=== PATIENT | female | born 1975 | race Asian ===

== ENCOUNTER 2021-02-25 22:43 | Inpatient (IN) | payer SELFPAY ==
[~2021-02-25] VITALS: Ht 157.5 cm; Wt 118.4 kg
--- NOTE | 2021-02-26 00:31 | PHYS DOC ---
Past Medical History Past Medical History: No Pertinent History Past Surgical History: No Surgical History Smoking Status: Never Smoker Alcohol Use: None General Adult EDM: Chief Complaint: COUGH HPI: HPI: Patient is a 45 year old female who present to ER for evaluation of nonproductive cough and fever for the last 4 days. Patient also complained of a sore throat. Patient denies any abdominal pain, no nausea vomiting, no chest pain. Patient says she was vaccinated for COVID 19 with Pfizer vaccine in July and August of this year. Patient does not smoke, she had no history of asthma. Patient did not have history of diabetic or high blood pressure. Review of Systems: Review of Systems: Constitutional: Positive fever and chills Eyes: Denies change in visual acuity. [] HENT: Denies nasal congestion, positive for sore throat Respiratory: Positive for cough, and trouble breathing Cardiovascular: Denies chest pain or edema. [] GI: Denies abdominal pain, nausea, vomiting, bloody stools or diarrhea. [] : Denies dysuria. [] Musculoskeletal: Denies back pain or joint pain. [] Integument: Denies rash. [] Neurologic: Denies headache, focal weakness or sensory changes. [] Endocrine: Denies polyuria or polydipsia. [] Lymphatic: Denies swollen glands. [] Psychiatric: Denies depression or anxiety. [] Heart Score: C/O Chest Pain: N/A Risk Factors: Risk Factors: DM, Current or recent (<one month) smoker, HTN, HLP, family history of CAD, obesity. Risk Scores: Score 0 - 3: 2.5% MACE over next 6 weeks - Discharge Home Score 4 - 6: 20.3% MACE over next 6 weeks - Admit for Clinical Observation Score 7 - 10: 72.7% MACE over next 6 weeks - Early Invasive Strategies Physical Exam: PE: Constitutional: Well developed, well nourished, no acute distress, non-toxic appearance. [] HENT: Normocephalic, atraumatic, bilateral external ears normal, oropharynx moist, no oral exudates, nose normal. [] Eyes: PERRLA, EOMI, conjunctiva normal, no discharge. [] Neck: Normal range of motion, no tenderness, supple, no stridor. [] Cardiovascular:Heart rate regular rhythm, no murmur [] Lungs & Thorax: Bilateral breath sounds with mild expiratory wheezing to auscultation and crackles at from midlung to bases. Abdomen: Bowel sounds normal, soft, no tenderness, no masses, no pulsatile masses. [] Skin: Warm, dry, no erythema, no rash. [] Back: No tenderness, no CVA tenderness. [] Extremities: No tenderness, no cyanosis, no clubbing, ROM intact, no edema. [] Neurologic: Alert and oriented X 3, normal motor function, normal sensory function, no focal deficits noted. [] Psychologic: Affect normal, judgement normal, mood normal. [] Current Patient Data: Labs: Laboratory Tests Test 02/26/21 00:53 02/26/21 01:48 SARS-CoV-2 Antigen (Rapid) Positive White Blood Count 3.6 x10^3/uL Red Blood Count 4.12 x10^6/uL Hemoglobin 8.9 g/dL Hematocrit 28.0 % Mean Corpuscular Volume 68 fL Mean Corpuscular Hemoglobin 22 pg Mean Corpuscular Hemoglobin Concent 32 g/dL Red Cell Distribution Width 17.4 % Platelet Count 252 x10^3/uL Neutrophils (%) (Auto) 65 % Lymphocytes (%) (Auto) 29 % Monocytes (%) (Auto) 6 % Eosinophils (%) (Auto) 0 % Basophils (%) (Auto) 0 % Neutrophils # (Auto) 2.4 x10^3/uL Lymphocytes # (Auto) 1.0 x10^3/uL Monocytes # (Auto) 0.2 x10^3/uL Eosinophils # (Auto) 0.0 x10^3/uL Basophils # (Auto) 0.0 x10^3/uL Platelet Estimate Adequate Hypochromasia Mod Anisocytosis Slight Microcytosis Marked Sodium Level 131 mmol/L Potassium Level 3.2 mmol/L Chloride Level 97 mmol/L Carbon Dioxide Level 24 mmol/L Anion Gap 10 Blood Urea Nitrogen 12 mg/dL Creatinine 0.8 mg/dL Estimated GFR (Cockcroft-Gault) 78.3 BUN/Creatinine Ratio 15 Glucose Level 115 mg/dL Lactic Acid Level 0.8 mmol/L Calcium Level 8.2 mg/dL Magnesium Level 1.7 mg/dL Total Bilirubin 0.4 mg/dL Aspartate Amino Transf (AST/SGOT) 30 U/L Alanine Aminotransferase (ALT/SGPT) 25 U/L Alkaline Phosphatase 167 U/L Troponin I High Sensitivity 14 ng/L FH-[id number]-Type Natriuretic Peptide 12 pg/mL Total Protein 8.6 g/dL Albumin 2.9 g/dL Albumin/Globulin Ratio 0.5 Serum Test, Qualitative Negative Current Medications Medications (Trade) Dose Ordered Sig/Jesse Route PRN Reason Start Time Stop Time Status Last Admin Dose Admin Methylprednisolone Sodium Succinate (SOLU-Medrol 125MG VIAL) 125 mg 1X ONCE IV 02/26/21 02:30 02/26/21 02:31 DC 02/26/21 03:15 Ceftriaxone Sodium (Rocephin) 1 gm 1X ONCE IVP 02/26/21 02:30 02/26/21 02:31 DC 02/26/21 03:18 Azithromycin (Zithromax) 500 mg 1X ONCE PO 02/26/21 02:30 02/26/21 02:31 DC 02/26/21 03:24 Magnesium Sulfate 50 ml @ 25 mls/hr 1X ONCE IV 02/26/21 02:30 02/26/21 04:29 02/26/21 03:20 Potassium Chloride (Klor-Con) 40 meq 1X ONCE PO 02/26/21 02:30 02/26/21 02:32 DC 02/26/21 03:23 Acetaminophen (Tylenol) 1,000 mg 1X ONCE PO 02/26/21 03:00 02/26/21 03:01 DC 02/26/21 03:23 EKG: EKG: [] Radiology/Procedures: Radiology/Procedures: [][facility] [address] [place] [address] IMAGING REPORT Signed PATIENT: ALISON MONTIEL ACCOUNT: [id number] : 1975 LOCATION: ER AGE: 45 SEX: F EXAM STATUS: REG ER ORD. PHYSICIAN: NOE MCHUGH DO REASON: cough and fever for 4 days PROCEDURE: CHEST AP ONLY XR CHEST 1V 02/26/2021 12:28 AM INDICATION: Cough and fever COMPARISON: None available TECHNIQUE: Portable frontal view of the chest is provided. FINDINGS: The cardiomediastinal silhouette is within normal limits. Moderate pulmonary vascular congestion. Trace left pleural effusion. No pneumothorax. No suspicious osseous abnormality. IMPRESSION: Moderate pulmonary vascular congestion as may be seen with congestive heart failure. Superimposed interstitial infiltrate may have similar appearance. Electronically signed by: Armaan Bauman MD (02/26/2021 12:55 AM) [facility] DICTATED and SIGNED BY: ARMAAN BAUMAN MD DATE: 02/26/21 [id number] 0 Course & Med Decision Making: Course & Med Decision Making Pertinent Labs and Imaging studies reviewed. (See chart for details) Patient is a 44-year-old female who present to ER due to cough, trouble breathing, fever and chills. Chest x-ray showed extensive infiltration consistent with COVID-19 infection. Patient was tested positive for COVID-19 infection. Patient oxygen saturation ranging from 93% to 95% on room air.. Patient will be admitted to hospital for further evaluation and treatment. Dragon Disclaimer: Dragon Disclaimer: This electronic medical record was generated, in whole or in part, using a voice recognition dictation system. Departure Departure Impression: Primary Impression: Pneumonia due to COVID-19 virus Additional Impressions: Hypokalemia Hypomagnesemia Disposition: ADMITTED INPATIENT Admitting Physician: GABRIEL (Dr. Dougherty) Condition: STABLE Referrals: NO PCP (PCP) NOE MCHUGH DO Feb 26, 2021 00:31
--- NOTE | 2021-02-26 00:57 | RAD ---
XR CHEST 1V 02/26/2021 12:28 AM INDICATION: Cough and fever COMPARISON: None available TECHNIQUE: Portable frontal view of the chest is provided. FINDINGS: The cardiomediastinal silhouette is within normal limits. Moderate pulmonary vascular congestion. Tra ce left pleural effusion. No pneumothorax. No suspicious osseous abnormality. IMPRESSION: Moderate pulmonary vascular congestion as may be seen with congestive heart failure. Superimposed int erstitial infiltrate may have similar appearance. Electronically signed by: Marlin Childs MD (02/26/2021 12:55 AM) JANNETTE
[2021-02-26 02:00] LABS: BASO % 0 % (0-3); EOS % 0 % (0-3); HEMOGLOBIN 8.9 g/dL (12.0-15.5); LYMPH % 29 % (24-48); MEAN CORPUSCULAR HEMOGLOBIN 22 pg (25-35); MEAN CORPUSCULAR HGB CONC 32 g/dL (31-37); MEAN CORPUSCULAR VOLUME 68 fL (79-100); MONO # 0.2 x10^3/uL (0.0-1.1); MONO % 6 % (0-9); NEUT # 2.4 x10^3/uL (1.8-7.7); NEUT % 65 % (31-73); PLATELET COUNT 252 x10^3/uL (140-400); RED BLOOD COUNT 4.12 x10^6/uL (3.50-5.40); RED CELL DISTRIBUTION WIDTH 17.4 % (11.5-14.5); WHITE BLOOD COUNT 3.6 x10^3/uL (4.0-11.0)
[2021-02-26 02:12] LABS: CALCIUM 8.2 mg/dL (8.5-10.1); CREATININE 0.8 mg/dL (0.6-1.0); GFR 78.3; POTASSIUM 3.2 mmol/L (3.5-5.1)
[2021-02-26 02:13] LABS: PREG TEST PT QUAL NEGATIVE (NEG)
[2021-02-26 02:17] LABS: ALBUMIN 2.9 g/dL (3.4-5.0); ALBUMIN/GLOBULIN RATIO 0.5 (1.0-1.7); MAGNESIUM 1.7 mg/dL (1.8-2.4); TOTAL BILIRUBIN 0.4 mg/dL (0.2-1.0); TOTAL PROTEIN 8.6 g/dL (6.4-8.2)
[2021-02-26 02:23] LABS: PLT ESTIMATE ADEQUATE (ADEQUATE)
[2021-02-26 02:24] LABS: ANISOCYTOSIS SLIGHT; HYPOCHROMIA MOD; MICROCYTOSIS MARKED
[2021-02-26] MEDS ORDERED: methylPREDNISolone SOD SUCC PF 125 MG/2 ML VIAL. IV ONE (02:30)
[2021-02-26] MEDS ORDERED: MAGNESIUM SULFATE 2GM 50 ML IV ONE (02:30)
[2021-02-26] MEDS ORDERED: AZITHROMYCIN 250 MG TABLET. PO ONE (02:30)
[2021-02-26] MEDS ORDERED: cefTRIAXone IV Push 1 GM VIAL. IVP ONE (02:30)
[2021-02-26] MEDS ORDERED: POTASSIUM CHLORIDE 10 MEQ TABLET.ER. PO ONE (02:30)
[2021-02-26] MEDS ORDERED: ACETAMINOPHEN 500 MG TABLET PO ONE (03:00)
[2021-02-26] MEDS ORDERED: ACETAMINOPHEN 325 MG TABLET. PO PRN (04:00)
[2021-02-26] MEDS ORDERED: ONDANSETRON PF 4 MG/2 ML VIAL. IVP PRN (04:00)
[2021-02-26 04:32] LABS: BILIRUBIN,URINE SMALL (NEG); CLARITY,URINE CLEAR; COLOR,URINE AMBER; NITRITE,URINE NEGATIVE (NEG); PROTEIN,URINE 100 mg/dL (NEG-TRACE)
[2021-02-26 04:38] LABS: BACTERIA,URINE 0 /HPF (0-FEW); HYALINE CASTS, URINE OCCASIONAL /HPF; RBC,URINE TNTC /HPF (0-2); WBC,URINE OCC /HPF (0-4)
[2021-02-26 07:00] VITALS: BP 108/62
[2021-02-26] MEDS: IV NORMAL SALINE 1000ML BAG 1,000 ML IV SCH ×2 (07:36→17:20)
[2021-02-26 11:00] VITALS: BP 104/58
--- NOTE | 2021-02-26 11:07 | NUR ---
SW following. Discussed with RN, pt from home, room air, regular diet, COVID-19 positive. Pt on IV abx. Med Assist following for self pay status. Anticipate possible discharge soon. SW will continue to follow.
[2021-02-26] MEDS ORDERED: guaiFENesin/CODEINE 100mg/10mg 5 ML LIQUID PO PRN (11:30)
--- NOTE | 2021-02-26 11:46 | HP ---
DATE OF SERVICE: 02/26/2021 ADMIT DATE: 02/26/2021 CHIEF COMPLAINT: Shortness of breath. HISTORY OF PRESENT ILLNESS: The patient is a pleasant, middle-aged female who moved here from [facility] recently. Basically, she presented to the ER last night with shortness of breath. She apparently is vaccinated, got a Pfizer vaccine in July and then again in August, but when we tested her last night for COVID-19, she came back positive. I discussed the case with ER physician. We decided to go to admit the patient and give her a COVID protocol. PAST MEDICAL HISTORY: Overweight. ALLERGIES: None. FAMILY HISTORY: Diabetes. SOCIAL HISTORY: She is from [facility]. She does not drink, smoke or take drugs. MEDICATIONS: Reviewed. Please refer to the MRAD. REVIEW OF SYSTEMS: GENERAL: No history of weight change, weakness or fevers. SKIN: No bruising, hair changes or rashes. EYES: No blurred, double or loss of vision. NOSE AND THROAT: No history of nosebleeds, hoarseness or sore throat. HEART: No history of palpitations, chest pain or shortness of breath on exertion. LUNGS: Denies cough, hemoptysis, wheezing or shortness of breath. GASTROINTESTINAL: Denies changes in appetite, nausea, vomiting, diarrhea or constipation. GENITOURINARY: No history of frequency, urgency, hesitancy or nocturia. NEUROLOGIC: Denies history of numbness, tingling, tremor or weakness. PSYCHIATRIC: No history of panic, anxiety or depression. ENDOCRINE: No history of heat or cold intolerance, polyuria or polydipsia. EXTREMITIES: Denies muscle weakness, joint pain, pain on walking or stiffness. PHYSICAL EXAMINATION: VITALS: Within normal limits and are stable. GENERAL: No apparent distress. Alert and oriented. HEENT: Normal cephalic atraumatic, external auditory canals are patent EYES: Extraocular muscles are intact, pupils are equally round and reactive to light and accommodation MUSCULOSKELETAL: Well developed, well nourished, good range of motion ENDOCRINE: No thyromegaly was palpated LYMPHATICS: No cervical chain or axillary nodes were noted HEMATOPOIETIC: No bruising NECK: Supple, no JVD, no thyromegaly was noted. LUNGS: Clear to auscultation in all lung hall without rhonchi or wheezing. HEART: RRR, S1, S2 present. Peripheral pulses intact, no obvious murmurs were noted. ABDOMEN: Soft, nontender. Positive bowel sounds no organomegaly, normal bowel sounds. EXTREMITIES: Without any cyanosis, clubbing, or edema. Pedal pulses intact, Homans sign is negative. NEUROLOGIC: Normal speech, normal tone. A and O x 3, moves all extremities, no obvious focal deficits. PSYCHIATRIC: Normal affect, normal mood. Stable. SKIN: No ulcerations or rashes, good skin turgor, no jaundice. VASCULAR: Good capillary refill, neurovascular bundle appears to be intact. LABORATORY DATA: White count is 3.6, hemoglobin 8.9, platelets 252. Electrolytes: Sodium 131, potassium 3.2, chloride 97, bicarb 24, BUN 12, creatinine 0.8, glucose 115 and urinalysis negative. Her BNP was 12 and her troponin was 14. DIAGNOSTIC DATA: Chest x-ray, moderate pulmonary vascular congestion, possibly CHF with superimposed infiltrate. ASSESSMENT AND PLAN: COVID-19, respiratory failure. The patient has been admitted. We will start COVID protocol, home meds. Deep venous thrombosis prophylaxis. Full code. ROB DR: Dante TID: [id number]
[2021-02-26] MEDS: methylPREDNISolone 4 MG TABLET. PO SCH ×4 (12:51→19:44)
[2021-02-26] MEDS: MULTIVITAMIN with MINERAL TABLET. PO SCH (12:51)
[2021-02-26] MEDS: DOXYCYCLINE HYCLATE 100 MG in IV DEXTROSE 5% 100ML 100 ML IV SCH ×2 (12:52→19:45)
[2021-02-26 15:00] VITALS: BP 122/68
--- NOTE | 2021-02-26 17:47 | NUR ---
IV fluids nonadministered by this RN. Previous bag still infusing. Refer to EMAR for additional details.
[2021-02-26 19:00] VITALS: BP_SYST 128; BP_SYST 145; BP_DIAS 70; BP_DIAS 80
[2021-02-26 23:00] VITALS: BP 114/54
[2021-02-27 03:00] VITALS: BP 121/72
[2021-02-27 07:30] VITALS: BP 109/60
--- NOTE | 2021-02-27 08:24 | PDOC ---
[employer] PROGRESS NOTE Date of Service DOS: DATE: 02/27/21 TIME: 08:22 Chief Complaint Chief Complaint COVID-19 respiratory failure Overweight History of Present Illness History of Present Illness 02/27/2021 Patient seen and examined She is still hypoxic at night Noncompliant with her O2 per nasal cannula Complains of a cough Discussed with RN Chart review Vitals/I&O Vitals/I&O: Vital Signs Date Time Temp Pulse Resp B/P (MAP) Pulse Ox O2 Delivery O2 Flow Rate FiO2 02/27/21 07:30 98.3 106 22 109/60 (76) 94 Nasal Cannula 2.0 98.3 I & O 02/26/21 02/26/21 02/27/21 15:00 23:00 07:00 Intake Total 380 ml 580 ml 500 ml Output Total 200 ml 100 ml Balance 180 ml 480 ml 500 ml Physical Exam General: Alert, Oriented X3 Heart: Regular rate Lungs: Crackles Abdomen: Normal bowel sounds Extremities: No clubbing Skin: No rashes Assessment and Plan Assessmemt and Plan Problems Medical Problems: (1) Hypokalemia Status: Acute (2) Hypomagnesemia Status: Acute (3) Pneumonia due to COVID-19 virus Status: Acut COVID-19 respiratory failure Overweight Plan Covid protocol Steroids Antibiotics Robitussin with codeine Vitamins and minerals O2 per nasal cannula Beta agonist Aspirin DVT prophylaxis Full code Comment Review of Relevant I have reviewed the following items cindy (where applicable) has been applied. Medications: Current Medications Medications (Trade) Dose Ordered Sig/Jesse Route PRN Reason Start Time Stop Time Status Last Admin Dose Admin Methylprednisolone (Medrol) 8 mg BID PO 02/26/21 12:00 02/26/21 21:01 DC 02/26/21 19:44 Methylprednisolone (Medrol) 4 mg BIDPCLD PO 02/26/21 13:30 02/26/21 17:31 DC 02/26/21 17:34 Doxycycline Hyclate 100 mg/ Dextrose 100 ml @ 50 mls/hr Q12HR IV 02/26/21 12:00 02/26/21 19:45 Multivitamins (Thera M Plus) 1 tab DAILY PO 02/26/21 12:00 02/26/21 12:51 Justifications for Admission Other Justification TOM JAMESON III DO Feb 27, 2021 08:24
[2021-02-27] MEDS: methylPREDNISolone 4 MG TABLET. PO SCH ×3 (08:40→17:36)
[2021-02-27] MEDS: MULTIVITAMIN with MINERAL TABLET. PO SCH (08:40)
[2021-02-27] MEDS: DOXYCYCLINE HYCLATE 100 MG in IV DEXTROSE 5% 100ML 100 ML IV SCH (08:41)
[2021-02-27] MEDS ORDERED: ENOXAPARIN 40 MG/0.4 ML SYRINGE. SQ SCH (09:00)
[2021-02-27] MEDS ORDERED: ASPIRIN CHEWABLE 81 MG TABLET. PO SCH (09:00)
[2021-02-27] MEDS ORDERED: METH4TAB2 PO (12:14)
[2021-02-27] MEDS ORDERED: DOXY100C3 PO (12:15)
--- NOTE | 2021-02-27 12:34 | DS ---
DATE OF DISCHARGE: 02/27/2021 ADMISSION DIAGNOSES: COVID-19, respiratory failure. DISCHARGE DIAGNOSES: 1. Resolving COVID-19. 2. Overweight. CONSULTS: None. PROCEDURES: None. HOSPITAL COURSE: The patient is a pleasant, middle-aged female who presented with COVID-19. She had actually been vaccinated back in July and August. While in the ER, she was somewhat hypoxic. We admitted the patient. I gave her steroids, doxycycline, beta agonist, oxygen, vitamins, minerals and cough syrup. Today, I saw and examined her. She is at her baseline and wants to go home. We are going to do a 6-minute walk and if she does well, we will discharge with p.o. antibiotics and a steroid taper. DISPOSITION: Home. ACTIVITY: As tolerated. DIET: Low sodium. MEDICATIONS: 1. Medrol Dosepak. 2. Doxycycline 100 p.o. b.i.d. 3. Multivitamin with minerals. 4. [id number] aspirin and cough syrup. 5. O2 per nasal cannula if she needs it. I left a prescription. We are awaiting our 6-minute walk. TOTAL TIME: [address]: LUCILA/brian TID: [id number]
[2021-02-27 15:30] VITALS: BP 119/70
--- NOTE | 2021-02-27 16:26 | NUR ---
YONI following. Discussed with RN, pt completed 6 minute walk - requiring 2L oxygen with rest and activity. YONI faxed to [employer] as they are the cheapest self pay che at $120 a month. Pt trying to decide if she can afford the $120 a month. YONI provided tank to RN for when pt decides, and advised RN to contact Michelle with [facility] with pt decision. YONI will continue to follow.
[2021-02-27 19:00] VITALS: BP 143/89
[2021-02-27] MEDS ORDERED: methylPREDNISolone 4 MG TABLET. PO SCH (21:00)
--- NOTE | 2021-02-27 22:07 | NUR ---
Patient assisted out in wheelchair to ER entrance by staff at 2100. Patient had discharge paperwork, belongings and oxygen tank with her. 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
[2021-02-28] MEDS ORDERED: methylPREDNISolone 4 MG TABLET. PO SCH (09:00)
[2021-03-01] MEDS ORDERED: methylPREDNISolone 4 MG TABLET. PO SCH (09:00)
[2021-03-02] MEDS ORDERED: methylPREDNISolone 4 MG TABLET. PO SCH (09:00)
[2021-03-03] MEDS ORDERED: methylPREDNISolone 4 MG TABLET. PO SCH (09:00)
== END 2021-02-27 21:00 | disposition home or self-care (01) | DRG 177 ==
LOC: ER 22:43 → 5 NORTH 02-26 03:39
PROVIDERS: ADMIT Internal Medicine; ATTEND Internal Medicine
DX: U07.1 COVID-19 (principal); J12.82 Pneumonia due to coronavirus disease 2019; J96.91 Respiratory failure, unspecified with hypoxia; Z68.42 Body mass index [BMI] 45.0-49.9, adult; E66.3 Overweight; E83.42 Hypomagnesemia; E87.6 Hypokalemia; Z83.3 Family history of diabetes mellitus; Z91.19 Patient's noncompliance with other medical treatment and regimen
CPT/HCPCS: 36415; 71045; 80053; 81001; 83605; 83735; 83880; 84484; 84703; 85025; 87040; 87426; 94618; 96365; 96375; J0696; J1650; J2930; J3475; J3490; J7030; J7060; J7509; 99285-25; G0378